=== PATIENT | female | born 1935 | race Two or more races ===

== ENCOUNTER 2022-10-11 16:21 | Inpatient (IN) | payer OTHER ==
[~2022-10-11] VITALS: Ht 152.4 cm; Wt 77.1 kg
[2022-10-11 17:47] LABS: BASOPHILS % (AUTO) 0.5 % (0.0-2.0); EOSINOPHILS # (AUTO) 0.1 K/uL (0.0-0.7); EOSINOPHILS % (AUTO) 2.3 % (0.0-6.0); HEMATOCRIT 38 % (33-45); HEMOGLOBIN 12.2 g/dL (11.5-14.8); LYMPHOCYTES # (AUTO) 1.5 K/uL (0.8-4.8); LYMPHOCYTES % (AUTO) 28.4 % (20.0-44.0); MEAN CORPUSCULAR HEMOGLOBIN 28 PG (26.0-33.0); MEAN CORPUSCULAR HGB CONC 32 g/dl (31.0-36.0); MEAN CORPUSCULAR VOLUME 89 fL (82-100); MONOCYTES # (AUTO) 0.6 K/uL (0.1-1.30); MONOCYTES % (AUTO) 11.3 % (2.0-12.0); NEUTROPHILS % (AUTO) 57.5 % (43.0-81.0); PLATELET COUNT (AUTO) 225 K/uL (150-450); RED BLOOD CELL COUNT(AUTO) 4.29 MIL/uL (4.0-5.2); RED CELL DISTRIBUTION WIDTH 14.5 % (11.5-15.0); WHITE BLOOD COUNT (AUTO) 5.2 K/uL (4.3-11.0)
[2022-10-11 17:50] LABS: APPEARANCE,URINE CLEAR (CLEAR); BILIRUBIN,URINE NEGATIVE (NEGATIVE); BLOOD, URINE NEGATIVE Ery/uL (NEGATIVE); COLOR,URINE YELLOW (YELLOW); KETONES,URINE NEGATIVE (NEGATIVE); LEUKOCYTE ESTERASE ,URINE 1+ (NEGATIVE); NITRITE, URINE NEGATIVE (NEGATIVE); PROTEIN,URINE NEGATIVE (NEGATIVE); UGLUCOSE NEGATIVE (NEGATIVE); UROBILINOGEN,URINE 0.2 EU/dL (0.2)
[2022-10-11 17:57] LABS: ALANINE AMINOTRANSFERASE 14 U/L (12-78); ALBUMIN 3.6 g/dL (3.4-5.0); ALKALINE PHOSPHATASE 73 U/L (46-116); ASPARTATE AMINOTRANSFERASE 20 U/L (15-37); BILIRUBIN,DIRECT 0.1 mg/dL (0.0-0.2); BILIRUBIN,TOTAL 0.3 mg/dL (0.2-1.0); CALCIUM, SERUM 9.1 mg/dL (8.5-10.1); CARBON DIOXIDE 24 mmol/L (21-32); CHLORIDE 103 mmol/L (98-107); CREATININE 1.2 mg/dL (0.6-1.3); GLUCOSE 85 mg/dL (74-106); LIPASE 224 U/L (73-393); POTASSIUM 4.7 mmol/L (3.5-5.1); SODIUM SERUM 133 mmol/L (136-145); TOTAL PROTEIN, SERUM 7.1 g/dL (6.4-8.2); UREA NITROGEN, BLOOD 22 mg/dL (7-18)
[2022-10-11 18:05] LABS: ADD URINE CULTURE YES; BACTERIA,URINE Rare /HPF (None Seen); RBC,URINE 0-2 /HPF (0-2); WBC,URINE 21-50 /HPF (0-3)
[2022-10-11] MEDS ORDERED: CEFTRIAXONE 1GM BAG (ER ONLY) 50 ML IV ONE (18:22)
[2022-10-11] MEDS ORDERED: CEFTRIAXONE 1GM BAG (ER ONLY) 1 GM/50 ML PIGGYBACK IV ONE (18:30)
[2022-10-11 20:30] VITALS: BP 132/58; TEMP 97.9; O2SAT 95
[2022-10-11] MEDS ORDERED: ONDANSETRON HCL/PF 4 MG/2 ML VIAL IVP PRN (22:00)
[2022-10-11] MEDS ORDERED: MAGNESIUM HYDROXIDE 30 ML UDC PO PRN (22:00)
[2022-10-11] MEDS ORDERED: Z GUARD REMEDY 4 OZ OINT TP PRN (22:00)
[2022-10-11] MEDS ORDERED: PHENAZOPYRIDINE HCL 200 MG TABLET PO PRN (22:00)
[2022-10-11] MEDS ORDERED: IV NS 0.9% 1,000 ML IV ONE (22:00)
[2022-10-11] MEDS: ENOXAPARIN SODIUM 30 MG/0.3 ML DISP.SYRIN SQ SCH (23:43)
[2022-10-12] VITALS: BP 122/53; TEMP 97.5; O2SAT 95
[2022-10-12 04:00] VITALS: BP 135/62; TEMP 97.9; O2SAT 97
[2022-10-12] MEDS: ACETAMINOPHEN 325 MG TABLET PO PRN ×2 (04:26→13:33)
[2022-10-12 06:15] LABS: BASOPHILS % (AUTO) 0.5 % (0.0-2.0); EOSINOPHILS # (AUTO) 0.2 K/uL (0.0-0.7); EOSINOPHILS % (AUTO) 3.4 % (0.0-6.0); HEMATOCRIT 36 % (33-45); HEMOGLOBIN 11.8 g/dL (11.5-14.8); LYMPHOCYTES # (AUTO) 1.7 K/uL (0.8-4.8); LYMPHOCYTES % (AUTO) 36.1 % (20.0-44.0); MEAN CORPUSCULAR HEMOGLOBIN 28 PG (26.0-33.0); MEAN CORPUSCULAR HGB CONC 33 g/dl (31.0-36.0); MEAN CORPUSCULAR VOLUME 88 fL (82-100); MONOCYTES # (AUTO) 0.4 K/uL (0.1-1.30); MONOCYTES % (AUTO) 9.7 % (2.0-12.0); NEUTROPHILS # (AUTO) 2.3 K/uL (1.8-8.9); NEUTROPHILS % (AUTO) 50.3 % (43.0-81.0); PLATELET COUNT (AUTO) 214 K/uL (150-450); RED BLOOD CELL COUNT(AUTO) 4.14 MIL/uL (4.0-5.2); RED CELL DISTRIBUTION WIDTH 14.4 % (11.5-15.0); WHITE BLOOD COUNT (AUTO) 4.6 K/uL (4.3-11.0)
[2022-10-12 06:39] LABS: CARBON DIOXIDE 23 mmol/L (21-32); CHLORIDE 107 mmol/L (98-107); CREATININE 1.1 mg/dL (0.6-1.3); GLUCOSE 96 mg/dL (74-106); MAGNESIUM 1.9 mg/dL (1.8-2.4); PHOSPHORUS 4.1 mg/dL (2.5-4.9); POTASSIUM 4.1 mmol/L (3.5-5.1); SODIUM SERUM 139 mmol/L (136-145); UREA NITROGEN, BLOOD 20 mg/dL (7-18)
[2022-10-12 06:44] LABS: THYROID STIMULATING HORMONE 4.166 uIU/mL (0.358-3.74)
[2022-10-12 07:30] VITALS: BP 143/61; TEMP 97.2; O2SAT 98
[2022-10-12] MEDS: PANTOPRAZOLE 40 MG TABLET.DR PO SCH (08:11)
[2022-10-12] MEDS ORDERED: ROSU10TA2 PO (09:18)
[2022-10-12] MEDS ORDERED: SPIR25TA6 PO (09:18)
[2022-10-12] MEDS ORDERED: BUME0.5T6 PO (09:18)
[2022-10-12] MEDS ORDERED: OMEP20TA5 PO (09:18)
[2022-10-12] MEDS ORDERED: LOSA25TA27 PO (09:18)
[2022-10-12 09:46] LABS: THYROID STIMULATING HORMONE 4.159 uIU/mL (0.358-3.74)
[2022-10-12 12:00] VITALS: BP 133/59; TEMP 97.7; O2SAT 98
[2022-10-12 16:00] VITALS: BP 134/70; TEMP 97.5; O2SAT 96
[2022-10-12] MEDS: BECLOMETHASONE INH SCH ×2 (18:14→18:15)
[2022-10-12] MEDS: FORMOTEROL INH SCH ×2 (18:14→18:15)
[2022-10-12 20:00] VITALS: BP 132/67; TEMP 97.5; O2SAT 96
[2022-10-12] MEDS: ENOXAPARIN SODIUM 30 MG/0.3 ML DISP.SYRIN SQ SCH (20:24)
[2022-10-12] MEDS ORDERED: CEFTRIAXONE 1 G in IV D5W 50 ML IV SCH (21:00)
[2022-10-13] VITALS: BP 151/65; TEMP 97.7; O2SAT 96
[2022-10-13 04:00] VITALS: BP 127/49; TEMP 97.7; O2SAT 98
[2022-10-13 07:30] VITALS: BP 154/74; TEMP 97.9; O2SAT 94
[2022-10-13] MEDS: PANTOPRAZOLE 40 MG TABLET.DR PO SCH (07:56)
[2022-10-13] MEDS: ACETAMINOPHEN 325 MG TABLET PO PRN (07:58)
[2022-10-13] MEDS: FORMOTEROL INH SCH ×2 (08:32→17:10)
[2022-10-13] MEDS: BECLOMETHASONE INH SCH ×2 (08:32→17:10)
[2022-10-13] MEDS ORDERED: ATORVASTATIN 40 MG TABLET PO SCH (09:00)
[2022-10-13] MEDS ORDERED: LOSARTAN POTASSIUM 25 MG TABLET PO SCH (09:00)
[2022-10-13 16:00] VITALS: BP 142/68; TEMP 97.5; O2SAT 96
[2022-10-13] MEDS ORDERED: PHEN-704 PO (17:04)
[2022-10-13] MEDS ORDERED: CEFD300C3 PO (17:04)
== END 2022-10-13 19:35 | disposition home or self-care (01) | DRG 463 ==
LOC: ER 16:23 → TELE 20:08
PROVIDERS: ADMIT Nurse Practitioner Family; ATTEND Nurse Practitioner Acute Care
DX: N39.0 Urinary tract infection, site not specified (principal); I11.0 Hypertensive heart disease with heart failure; I50.32 Chronic diastolic (congestive) heart failure; E87.1 Hypo-osmolality and hyponatremia; E86.0 Dehydration; Z20.822 Contact with and (suspected) exposure to COVID-19; B96.89 Other specified bacterial agents as the cause of diseases classified elsewhere; Z79.899 Other long term (current) drug therapy; R79.89 Other specified abnormal findings of blood chemistry; R26.9 Unspecified abnormalities of gait and mobility; Z90.710 Acquired absence of both cervix and uterus; Z90.49 Acquired absence of other specified parts of digestive tract; E03.8 Other specified hypothyroidism; E78.5 Hyperlipidemia, unspecified
CPT/HCPCS: 36415; 71045-TC; 80048-TC; 80061-TC; 80076-TC; 81001; 82728-TC; 83540-TC; 83690-TC; 83735-TC; 84100-TC; 84439-TC; 84443-TC; 84484-TC; 85025-TC; 87086-TC; 93307-TC; 97110-TC; 97116-TC; 97530-TC; A4223; G0378; J0696; J1650; J7030; J7060